=== PATIENT | female | born 1975 | race Caucasian/White ===

== ENCOUNTER 2025-01-02 19:32 | Inpatient (IN) | payer BC ==
[~2025-01-02] VITALS: Ht 157.5 cm; Wt 65.0 kg
[~2025-01-02 19:32] MED LIST: HYDR2DIS IV; LORA2VIA11 IV; METO5VIA6 IV; Ondansetron Hcl/Pf IV; PANT40VI IV; PIPE3.377 IV
[2025-01-02] MEDS ORDERED: KETOROLAC TROMETHAMINE 15 MG/ML VIAL ONE (19:55)
[2025-01-02] MEDS ORDERED: ONDANSETRON HCL/PF 4 MG/2 ML VIAL ONE (19:55)
[2025-01-02] MEDS: ONDANSETRON HCL/PF 4 MG/2 ML VIAL IVP ONE (20:00)
[2025-01-02] MEDS: KETOROLAC TROMETHAMINE 15 MG/ML VIAL IV ONE (20:00)
[2025-01-02] MEDS: IV NS 0.9% 1,000 ML BAG IV ONE ×2 (20:00→20:36)
[2025-01-02] MEDS ORDERED: HALOPERIDOL LACTATE INJ 5 MG/ML VIAL ONE (20:49)
[2025-01-02] MEDS ORDERED: METOCLOPRAMIDE HCL 10 MG/2 ML VIAL ONE (20:49)
[2025-01-02 20:53] LABS: PLATELET COUNT (AUTO) 176 K/uL (150-450); RED BLOOD CELL COUNT(AUTO) 4.74 MIL/uL (4.0-5.2); RED CELL DISTRIBUTION WIDTH 15.3 % (11.5-15.0); WHITE BLOOD COUNT (AUTO) 9.5 K/uL (4.3-11.0)
[2025-01-02] MEDS ORDERED: IOHEXOL-300 100 ML VIAL IV ONE (20:53)
[2025-01-02] MEDS ORDERED: IV NS 0.9% 250 ML IV ONE (20:53)
[2025-01-02] MEDS ORDERED: CT SWABBABLE VALVE TRANS SET 1 EA INFUS.SET MC ONE (20:53)
[2025-01-02] MEDS: METOCLOPRAMIDE HCL 10 MG/2 ML VIAL IV ONE (20:56)
[2025-01-02] MEDS: HALOPERIDOL LACTATE INJ 5 MG/ML VIAL IV ONE (20:56)
[2025-01-02 21:03] LABS: CALCIUM, SERUM 8.7 mg/dL (8.5-10.1); CREATININE 1.0 mg/dL (0.6-1.3); SODIUM SERUM 147 mmol/L (136-145); UREA NITROGEN, BLOOD 12 mg/dL (7-18)
[2025-01-02 21:11] LABS: ASPARTATE AMINOTRANSFERASE 16 U/L (15-37); TOTAL PROTEIN, SERUM 6.7 g/dL (6.4-8.2)
[2025-01-02 22:00] VITALS: BP_SYST 138; BP_SYST 141; BP_DIAS 71; BP_DIAS 93; TEMP 98.1; TEMP 98.4; O2SAT 92; O2SAT 98
[2025-01-02] MEDS ORDERED: ACETAMINOPHEN 650 MG/SUPP.RECT RC PRN (22:00)
[2025-01-02] MEDS ORDERED: TEMAZEPAM 15 MG CAPSULE PO PRN (22:00)
[2025-01-02] MEDS: NICOTINE PATCH (14MG) 14 MG PATCH.TD24 TD SCH (22:00)
[2025-01-02 22:02] LABS: LACTIC ACID 1.1 mmol/L (0.4-2.0)
[2025-01-02] MEDS: IV LR 1000 ML 1,000 ML IV PRN (23:03)
[2025-01-02] MEDS: HYDROMORPHONE 1 MG/1 ML DISP.SYRIN IV PRN (23:27)
[2025-01-03] VITALS (8 sets, daily range): BP systolic 100–141; BP diastolic 74–93; TEMP 97.5–98.4; O2SAT 92–94
[2025-01-03] MEDS: ONDANSETRON HCL/PF 4 MG/2 ML VIAL IVP PRN (03:51)
[2025-01-03 05:44] LABS: PLATELET COUNT (AUTO) 168 K/uL (150-450); RED BLOOD CELL COUNT(AUTO) 4.42 MIL/uL (4.0-5.2); RED CELL DISTRIBUTION WIDTH 14.9 % (11.5-15.0); WHITE BLOOD COUNT (AUTO) 6.8 K/uL (4.3-11.0)
[2025-01-03 05:58] LABS: CALCIUM, SERUM 8.2 mg/dL (8.5-10.1); CREATININE 0.9 mg/dL (0.6-1.3); LDL 88 mg/dL (0-99); PHOSPHORUS 4.1 mg/dL (2.5-4.9); SODIUM SERUM 143 mmol/L (136-145); UREA NITROGEN, BLOOD 13 mg/dL (7-18)
[2025-01-03] MEDS: PIPERACILLIN /TAZOBACTAM 3.375 G in IV D5W 50 ML IV SCH (07:03)
[2025-01-03] MEDS: PANTOPRAZOLE 40 MG VIAL IV SCH (08:19)
[2025-01-03] MEDS ORDERED: OMEP40CA21 PO (08:47)
[2025-01-03] MEDS: IV LR 1000 ML 1,000 ML IV PRN (10:39)
[2025-01-03] MEDS: HYDROMORPHONE 1 MG/1 ML DISP.SYRIN IV PRN (12:11)
[2025-01-03] MEDS: ALBUTEROL FS 2.5 MG/3 ML VIAL.NEB NEB PRN (18:40)
[2025-01-03] MEDS ORDERED: PIPERACILLIN /TAZOBACTAM 3.375 G in IV D5W 50 ML IV SCH (22:29)
[2025-01-04 06:37] LABS: PLATELET COUNT (AUTO) 196 K/uL (150-450); RED BLOOD CELL COUNT(AUTO) 4.49 MIL/uL (4.0-5.2); RED CELL DISTRIBUTION WIDTH 15.1 % (11.5-15.0); WHITE BLOOD COUNT (AUTO) 9.9 K/uL (4.3-11.0)
[2025-01-04 06:49] LABS: CALCIUM, SERUM 7.7 mg/dL (8.5-10.1); CREATININE 0.9 mg/dL (0.6-1.3); SODIUM SERUM 141 mmol/L (136-145); UREA NITROGEN, BLOOD 12 mg/dL (7-18)
[2025-01-04 08:00] VITALS: BP_SYST 104; BP_SYST 126; BP_DIAS 75; BP_DIAS 81; TEMP 98.1; TEMP 98.2; O2SAT 96
[2025-01-04 09:06] VITALS: BP 119/79
[2025-01-04 13:27] VITALS: BP 114/71
[2025-01-04 15:51] VITALS: BP 104/82; TEMP 98.4; O2SAT 92
[2025-01-04] MEDS: METOCLOPRAMIDE HCL 10 MG/2 ML VIAL IV PRN (16:29)
[2025-01-04 20:00] VITALS: BP 124/77; TEMP 98.1; O2SAT 94
[2025-01-05] VITALS (7 sets, daily range): BP systolic 98–128; BP diastolic 55–90; TEMP 97.3–98.4; O2SAT 92–99
[2025-01-05 06:18] LABS: PLATELET COUNT (AUTO) 195 K/uL (150-450); RED BLOOD CELL COUNT(AUTO) 4.12 MIL/uL (4.0-5.2); RED CELL DISTRIBUTION WIDTH 15.2 % (11.5-15.0); WHITE BLOOD COUNT (AUTO) 11.8 K/uL (4.3-11.0)
[2025-01-05 06:25] LABS: CALCIUM, SERUM 7.8 mg/dL (8.5-10.1); CREATININE 0.9 mg/dL (0.6-1.3); SODIUM SERUM 136.0 mmol/L (136-145); UREA NITROGEN, BLOOD 11.0 mg/dL (7-18)
[2025-01-05] MEDS: HYDROMORPHONE 1 MG/1 ML DISP.SYRIN IV PRN (10:30)
[2025-01-06] VITALS (11 sets, daily range): BP systolic 113–140; BP diastolic 81–93; TEMP 98.1–98.2; O2SAT 93–99
[2025-01-06 06:10] LABS: PLATELET COUNT (AUTO) 172 K/uL (150-450); RED BLOOD CELL COUNT(AUTO) 3.85 MIL/uL (4.0-5.2); RED CELL DISTRIBUTION WIDTH 15.4 % (11.5-15.0); WHITE BLOOD COUNT (AUTO) 8.2 K/uL (4.3-11.0)
[2025-01-06 06:18] LABS: CALCIUM, SERUM 8.1 mg/dL (8.5-10.1); CREATININE 0.7 mg/dL (0.6-1.3); SODIUM SERUM 138.0 mmol/L (136-145); UREA NITROGEN, BLOOD 7.0 mg/dL (7-18)
[2025-01-06] MEDS: PANTOPRAZOLE 40 MG/PACK PACK PO SCH (08:32)
[2025-01-06] MEDS ORDERED: ALBUTEROL FS 2.5 MG/0.5 ML VIAL.NEB NEB PRN (11:00)
[2025-01-06] MEDS: FUROSEMIDE 40 MG/4 ML VIAL IV SCH (12:32)
[2025-01-06] MEDS: ALBUTEROL FS 2.5 MG/0.5 ML VIAL.NEB NEB SCH (14:02)
[2025-01-06] MEDS: IPRATROPIUM NEB FS 0.5 MG/2.5 ML AMPUL.NEB NEB SCH (14:02)
[2025-01-07] VITALS (11 sets, daily range): BP systolic 119–139; BP diastolic 72–85; TEMP 97.3–98.2; O2SAT 92–99
[2025-01-07 08:15] LABS: CALCIUM, SERUM 8.0 mg/dL (8.5-10.1); CREATININE 0.7 mg/dL (0.6-1.3); SODIUM SERUM 140.0 mmol/L (136-145); UREA NITROGEN, BLOOD 5.0 mg/dL (7-18)
[2025-01-07 09:00] LABS: PLATELET COUNT (AUTO) 151 K/uL (150-450); RED BLOOD CELL COUNT(AUTO) 3.51 MIL/uL (4.0-5.2); RED CELL DISTRIBUTION WIDTH 15.1 % (11.5-15.0); WHITE BLOOD COUNT (AUTO) 7.6 K/uL (4.3-11.0)
[2025-01-07] MEDS: POTASSIUM CHLORIDE 20 MEQ POWDER PACKET PO SCH (11:47)
[2025-01-08] VITALS (12 sets, daily range): BP systolic 126–141; BP diastolic 71–90; TEMP 97.7–98.2; O2SAT 91–99
[2025-01-08] MEDS: ALBUTEROL FS 2.5 MG/0.5 ML VIAL.NEB NEB PRN (06:07)
[2025-01-08 08:03] LABS: CREATININE 0.7 mg/dL (0.6-1.3); SODIUM SERUM 143.0 mmol/L (136-145); UREA NITROGEN, BLOOD 4.0 mg/dL (7-18)
[2025-01-08 08:38] LABS: CALCIUM, SERUM 8.2 mg/dL (8.5-10.1)
[2025-01-08] MEDS: POTASSIUM CHLORIDE 20 MEQ TAB.PRT.SR PO SCH (10:08)
[2025-01-09] VITALS (11 sets, daily range): BP systolic 112–128; BP diastolic 79–81; TEMP 98.1–99.5; O2SAT 91–97
[2025-01-09 06:27] LABS: CALCIUM, SERUM 8.2 mg/dL (8.5-10.1); CREATININE 0.7 mg/dL (0.6-1.3); SODIUM SERUM 142.0 mmol/L (136-145); UREA NITROGEN, BLOOD 7.0 mg/dL (7-18)
[2025-01-09] MEDS: POTASSIUM CHLORIDE 20 MEQ TAB.PRT.SR PO SCH (09:56)
[2025-01-09 15:44] LABS: ABG BASE EXCESS 6.0 mmol/L (-2.0-3.0); ABG OXYGEN SATURATION 94.1 % (94.0-98.0); ABG PCO2 38.8 mmHg (32.0-45.0); ABG PH 7.499 (7.350-7.450); ABG PO2 67.3 mmHg (83.0-108.0); ABG TOTAL HEMOGLOBIN 12.8 G/dL (12.0-16.0); FLOW, BLOOD GAS 2.00 L/min (0.00-30.00); SITE, ABG RIGHT RADIAL
[2025-01-09 17:44] LABS: INR 1.09 (0.91-1.10)
[2025-01-09] MEDS: PIPERACILLIN /TAZOBACTAM 3.375 G in IV D5W 50 ML IV SCH (17:49)
[2025-01-09] MEDS: MAG HYDROX/AL HYDROX/SIMETH 30 ML UDC PO PRN (18:18)
[2025-01-10] VITALS (11 sets, daily range): BP systolic 103–110; BP diastolic 68–83; TEMP 98.1–99; O2SAT 92–98
[2025-01-10 07:24] LABS: PLATELET COUNT (AUTO) 230 K/uL (150-450); RED BLOOD CELL COUNT(AUTO) 3.90 MIL/uL (4.0-5.2); RED CELL DISTRIBUTION WIDTH 15.6 % (11.5-15.0); WHITE BLOOD COUNT (AUTO) 12.4 K/uL (4.3-11.0)
[2025-01-10 08:22] LABS: CALCIUM, SERUM 8.3 mg/dL (8.5-10.1); CREATININE 0.8 mg/dL (0.6-1.3); PHOSPHORUS 2.1 mg/dL (2.5-4.9); SODIUM SERUM 136.0 mmol/L (136-145); UREA NITROGEN, BLOOD 7.0 mg/dL (7-18)
[2025-01-10 11:22] LABS: EOSINOPHILS % (MANUAL) 4 % (0-4); LYMPHOCYTES % (MANUAL) 11 % (16-48); MONOCYTES % (MANUAL) 2 % (0-11.0); NEUTROPHILS % (MANUAL) 83 (42-76); PLATELET ESTIMATE ADEQUATE
[2025-01-10] MEDS: POTASSIUM CHLORIDE 20 MEQ POWDER PACKET PO ONE (11:23)
[2025-01-10] MEDS: POTASSIUM CHLORIDE 20 MEQ TAB.PRT.SR PO ONE (12:26)
[2025-01-10 15:22] LABS: PROTEIN, BODY FLUID 2.7 G/DL
[2025-01-10 15:48] LABS: WBC, BODY FLUID 548 /cu. mm. (0-200)
[2025-01-10 15:55] LABS: TOTAL VOLUME,BODY FLUID 650 mL
[2025-01-10] MEDS: NEUTRA PHOS 1 POWD.PACKET PO ONE (16:12)
[2025-01-10 16:24] LABS: APPEARANCE,SPUN,BODY FLUID CLEAR (CLEAR)
[2025-01-10] MEDS: POTASSIUM PHOSPHATE MM 7.5 MMOL in IV NS 0.9% 100 ML IV SCH (17:37)
[2025-01-11 01:15] VITALS: O2SAT 96
[2025-01-11 01:27] VITALS: O2SAT 98
[2025-01-11 06:38] LABS: PLATELET COUNT (AUTO) 219 K/uL (150-450); RED BLOOD CELL COUNT(AUTO) 3.80 MIL/uL (4.0-5.2); RED CELL DISTRIBUTION WIDTH 15.5 % (11.5-15.0); WHITE BLOOD COUNT (AUTO) 11.8 K/uL (4.3-11.0)
[2025-01-11 06:46] LABS: CALCIUM, SERUM 8.3 mg/dL (8.5-10.1); CREATININE 0.7 mg/dL (0.6-1.3); PHOSPHORUS 3.6 mg/dL (2.5-4.9); SODIUM SERUM 135.0 mmol/L (136-145); UREA NITROGEN, BLOOD 6.0 mg/dL (7-18)
[2025-01-11 07:42] VITALS: O2SAT 95
[2025-01-11 07:57] VITALS: O2SAT 99
[2025-01-11 08:00] VITALS: BP 127/78; TEMP 97.9; O2SAT 92
[2025-01-11] MEDS ORDERED: ALBU18HF2 INH (12:20)
[2025-01-11] MEDS ORDERED: AMOX-430 PO (12:20)
[2025-01-11] MEDS ORDERED: METO-295 PO (12:20)
[2025-01-11] MEDS ORDERED: NICO-676 TD (12:20)
[2025-01-11 13:17] VITALS: O2SAT 94
== END 2025-01-11 14:25 | disposition home or self-care (01) | DRG 438 ==
LOC: ER 19:33 → MED 20:51
PROVIDERS: ADMIT Registered Nurse Psychiatric/Mental Health; ATTEND Nurse Practitioner Acute Care
PROC: 0W9B3ZZ Drainage of Left Pleural Cavity, Percutaneous Approach (ICD-10-PCS; principal; 2025-01-10)
DX: K85.10 Biliary acute pancreatitis without necrosis or infection (principal); J96.00 Acute respiratory failure, unspecified whether with hypoxia or hypercapnia; E87.0 Hyperosmolality and hypernatremia; K86.3 Pseudocyst of pancreas; J81.1 Chronic pulmonary edema; J90 Pleural effusion, not elsewhere classified; Q45.3 Other congenital malformations of pancreas and pancreatic duct; E86.0 Dehydration; E87.8 Other disorders of electrolyte and fluid balance, not elsewhere classified; E86.9 Volume depletion, unspecified; J45.909 Unspecified asthma, uncomplicated; F17.210 Nicotine dependence, cigarettes, uncomplicated; Z85.3 Personal history of malignant neoplasm of breast; Z92.21 Personal history of antineoplastic chemotherapy; Z92.3 Personal history of irradiation; K80.20 Calculus of gallbladder without cholecystitis without obstruction; R11.2 Nausea with vomiting, unspecified; E87.70 Fluid overload, unspecified; K86.1 Other chronic pancreatitis
CPT/HCPCS: 36415; 36600; 71045-TC; 71250-TC; 74181-TC; 76705-TC; 80048-TC; 80061-TC; 80076-TC; 82803-TC; 83605-TC; 83690-TC; 83735-TC; 83880; 84100-TC; 85025-TC; 85027-TC; 85730-TC; 87070-TC; 87075-TC; 87102-TC; 89051-TC; 93307-TC; 94760-TC; 94761-TC; 94799-TC; A4223; G0378; J1171; J1630; J1885; J1938; J2405; J2470; J2543; J2765; J3490; J7030; J7050; J7060; J7120; Q9967